=== PATIENT | female | born 1995 | race American Indian/Alaskan Native ===

== ENCOUNTER 2018-08-26 23:05 | Inpatient (IN) | payer OTHER ==
[2018-08-26] MEDS ORDERED: LACTATED RINGERS 1,000 ML IV ONE (23:21)
[2018-08-26 23:37] LABS: Bilirubin,Urine NEG (Negative); Blood,Urine NEG (Negative); Color,Urine Straw (Yellow); Protein,Urine <15 mg/dL mg/dL (Negative)
[2018-08-26] MEDS ORDERED: ROCEPHIN/NS 1 GM/50 ML 1 GM/50 ML BAG IV ONE (23:51)
[2018-08-26] MEDS ORDERED: BRETHINE SUB-Q ONE (23:51)
[2018-08-27] MEDS ORDERED: CELESTONE SOLUSPAN IM SCH (00:16)
[2018-08-27] MEDS ORDERED: MAGNESIUM SULFATE 4GM/100ML 4 GM/100 ML BAG IV ONE (00:19)
[2018-08-27] MEDS ORDERED: AMPICILLIN/NS 2 GM/100 ML 2 GM/100 ML BAG IV ONE (00:26)
[2018-08-27] MEDS ORDERED: BRETHINE SUB-Q PRN (00:26)
--- NOTE | 2018-08-27 00:44 | History and Physical Report ---
History of Present Illness Date of examination: 08/27/18 Date of admission: 08/27/18 00:17 Chief complaint: Contractions History of present illness: 23 year old at 32 weeks, 3 days gestation presents to labor and delivery complaining of contractions. Patient states she has been having contractions for the past 10-11 hours. Patient denies leaking of fluid, vaginal bleeding, or vaginal discharge. Patient reports active movement. Patient states she receives care at [facility] OB-GENERAL DUTY NURSE. No records are available. Will request records. [facility] 10/19/2018 per patient report. Ultrasound has been ordered to confirm gestational age and presentation. labs have been drawn. Vaginal and urine cultures have been ordered. Past History Past Medical History: other (obesity) Past Surgical History: no surgical history GENERAL DUTY NURSE History: trichomonas (had trichomonas earlier in , treated and cured per patient report). denies: abnormal PAP smear, chlamydia, gonorrhea, hepatitis B, hepatitis C, herpes, HIV, syphilis Family/Genetic History: diabetes Social history: single, lives with family, full code. denies: smoking, alcohol abuse, prescription drug abuse, IV drug use - Obstetrical History Expected Date of Delivery: 10/19/18 Actual Gestation: 32 Week(s) 3 Day(s) : 1 Para: 0 Hx # Term Pregnancies: 0 Number of Pregnancies: 1 Spontaneous Abortions: 0 Induced : 0 Number of Living Children: 0 Medications and Allergies Allergies Allergy/AdvReac Type Severity Reaction Status Date / Time No Known Allergies Allergy Unverified 08/19/18 18:18 Home Medications Medication Instructions Recorded Confirmed Last Taken Type No Known Home Medications [No 08/26/18 08/26/18 Unknown History Reported Home Medications] Active Meds: Active Medications Betamethasone Acet/Betameth SodPhos (Celestone Soluspan) 12 mg IM Q24H STEPHANIE Stop: 08/28/18 00:17 Magnesium Sulfate (Magnesium Sulfate 40gm/1000ml) 40 gm in 1,000 mls @ 50 mls/hr IV DIRECT STEPHANIE Ampicillin Sodium (Polycillin/Ns 2 Gm/100 Ml) 2 gm in 100 mls @ 100 mls/hr IV ONCE ONE; Protocol Stop: 08/27/18 01:25 Lactated Ringer's (Lactated Ringers) 1,000 mls @ 125 mls/hr IV DIRECT STEPHANIE Ampicillin Sodium (Ampicillin/Ns 1 Gm/50 Ml) 1 gm in 50 mls @ 100 mls/hr IV Q4HR STEPHANIE; Protocol Review of Systems All systems: negative (contractions) - Vital Signs Vital signs: Vital Signs Pulse BP 83 112/70 08/26/18 23:19 08/26/18 23:19 Temp Pulse Resp BP Pulse Ox 98.4 F 92 H 20 112/70 99 08/26/18 23:22 08/26/18 23:59 08/26/18 23:22 08/26/18 23:19 08/26/18 23:59 - Physical Exam Abdomen: Positive: normal appearance, soft. Negative: distention, tenderness, guarding, rigidity Genitourinary (Female): Positive: normal external genitalia, normal perenium. Negative: perineal/vulvar lesions Vagina: Positive: discharge (culture taken for GC/CT and GBS) Uterus: Positive: enlarged, other (size=dates). Negative: tender Anus/Rectum: Positive: normal perianal skin Extremities: Positive: normal. Negative: tenderness, edema - Obstetrical FHR: category 1 (AGA) Uterine Contraction Monitor Mode: External Cervical Dilatation: 3 Cervical Effacement Percentage: 100 (Breech, bulging membranes) station: -2 Uterine Contraction Pattern: Regular Uterine Contraction Intensity: Moderate Results Result Diagrams: 08/27/18 00:35 Abnormal lab results 08/26/18 Range/Units 23:20 Urine WBC (Auto) 14.0 H (0.0-6.0) /HPF All other labs normal. Assessment and Plan A: at 32 weeks, 3 days gestation. labor. GBS unknown. No records available. Breech presentation with bulging membranes (will get US to confirm). P: Admit. Continue IV hydration. Magnesium Sulfate per protocol. Celestone IM. GBS prophylaxis. US to confirm presentation, location of placenta, and gestational age. Labs and cultures. Consulted with Dr. Rea regarding this patient and all of the above patient complaints and interventions taken. Management of patient turned over to Dr. Rea due to gestation/ labor.
[2018-08-27] MEDS ORDERED: MORPHINE IM ONE (00:49)
[2018-08-27] MEDS ORDERED: ZOFRAN IM ONE (00:50)
[2018-08-27] MEDS ORDERED: MAGNESIUM SULFATE 40GM/1000ML 40 GM/1,000 ML BAG IV SCH (01:00)
[2018-08-27 01:06] LABS: Hematocrit 32.3 % (30.3-42.9); Hemoglobin 10.9 gm/dl (10.1-14.3); Mean Corpuscular HGB Conc 34 % (30-34); Mean Corpuscular Volume 90 fl (79-97); Platelet Count 288 K/mm3 (140-440); Red Cell Distribution Width 13.6 % (13.2-15.2)
[2018-08-27 01:43] LABS: Hepatitis C Virus Antibody Non-Reactive (NonReactive)
--- NOTE | 2018-08-27 01:44 | Ultrasound Report ---
FINAL REPORT PROCEDURE: US OB FOLLOW UP TECHNIQUE: Real-time limited sonographic examination was performed for evaluation of size, pos ition, heartbeat, fluid volume for each fetus with image documentation (1 or more fetuses). CPT 7681 5 HISTORY: Presentation, gestational age COMPARISON: No prior studies are available for comparison. FINDINGS: FETUS IUP: Single living intrauterine . Position: Breech. Placental position: Posterior, without previa . Amniotic fluid volume: 20.1 centimeters. Heart rate and rhythm: 157 BPM, Regular . anatomic survey: Not performed. MEASUREMENTS BPD: 6.7 centimeters corresponding to 35 weeks. HC: 31.3 centimeters correspond at 35 weeks and 1 day. AC: 27 centimeters correspond at 31 weeks and 1 day. FL: 6.5 centimeters correspond at 33 weeks and 4 days. Mean Gestational Age (composite criteria): 33 weeks and 5 days. Ratio biometry: Normal . Estimated Weight: 2005 grams. Interval growth: There are no prior studies for comparison. Estimated Due Date (earliest scan): 10/10/2018. IMPRESSION: 1. Single living intrauterine gestation at approximately 33 weeks and 5 days. 2. EDC by US 10/10/2018.
[2018-08-27 02:09] LABS: Amphetamine Screen,Urine PRESUMPTIVE NEGATIVE; Benzodiazepines Screen,Urine PRESUMPTIVE NEGATIVE; Cannabinoid Screen,Urine PRESUMPTIVE NEGATIVE; Cocaine Screen,Urine PRESUMPTIVE NEGATIVE; Methadone Screen,Urine PRESUMPTIVE NEGATIVE; Opiate Screen,Urine PRESUMPTIVE NEGATIVE
--- NOTE | 2018-08-27 02:47 | Event Note ---
Date: 08/27/18 SVE per MD request: . MD notified of SVE.
--- NOTE | 2018-08-27 07:30 | Event Note ---
Patient seen and examined. Cervix exam 2-/high station, membrane palpable. Foul smell. Need evaluation for ruptured membranes. Contractions began at 230pm. Patient did not arrive to hospital til 12am due to transportation. Discussed with nurse and will discuss with nursing team. Patient aware will need csection if breech persists. Irregular contractions. Continue NPO.
[2018-08-27] MEDS: AMPICILLIN/NS 1 GM/50 ML 1 GM/50 ML BAG IV SCH ×3 (08:00→16:39)
--- NOTE | 2018-08-27 09:27 | Progress Note ---
Assessment and Plan - Patient Problems (1) 32 weeks gestation of Current Visit: Yes Status: Acute (2) labor Current Visit: Yes Status: Acute Plan to address problem: Celestone dose# 1 given. Next dose tomorrow. Magnesium sulfate at 2gm/hr. Monitor Mg levels, DTRs, urine output. Continue ampicillin for GBS prophylaxis. Continue and toco monitoring. Awaiting APA consult. NICU consult. (3) Breech presentation Current Visit: Yes Status: Acute Plan to address problem: Patient is aware that if her labor progresses, she will have a C/section. Subjective - Subjective Date of service: 08/27/18 Principal diagnosis: SIUP at 32 weeks 3 days gestation in labor Interval history: Patient is a 23 year old , EDC 10/19/18 at 32 weeks and 3 days gestation who was admitted for labor early this morning. Her cervix was 2-3 cm/100%/- 3. Sonogram showed the baby to be breech, LISA 20. She was given magnesium sulfate for tocolysis, celestone for FLM, and ampicillin for GBS prophylaxis. She was found to have foul-smelling vaginal discharge. She was given rocephin IM. Genital cultures are pending. The patient says that her contractions are less frequent now. tracing is CAT1. Objective - Vital Signs Vital Signs: Vital Signs - 12hr 08/26/18 08/26/18 08/26/18 23:19 23:22 23:59 Temperature 98.4 F Pulse Rate 83 92 H Respiratory 20 Rate Blood Pressure 112/70 O2 Sat by Pulse 99 Oximetry 08/27/18 08/27/18 08/27/18 00:45 00:50 00:55 Temperature Pulse Rate 112 H 106 H 97 H Respiratory Rate Blood Pressure O2 Sat by Pulse 98 98 98 Oximetry 08/27/18 08/27/18 08/27/18 00:56 01:00 01:05 Temperature Pulse Rate 99 H 108 H 100 H Respiratory Rate Blood Pressure 119/72 O2 Sat by Pulse 98 97 Oximetry 08/27/18 08/27/18 08/27/18 01:10 01:15 01:20 Temperature Pulse Rate 121 H 108 H 102 H Respiratory Rate Blood Pressure O2 Sat by Pulse 98 96 97 Oximetry 08/27/18 08/27/18 08/27/18 01:25 01:30 01:35 Temperature Pulse Rate 98 H 104 H 111 H Respiratory Rate Blood Pressure O2 Sat by Pulse 97 99 98 Oximetry 08/27/18 08/27/18 08/27/18 01:40 01:45 01:46 Temperature Pulse Rate 98 H 101 H 96 H Respiratory Rate Blood Pressure O2 Sat by Pulse 97 98 94 Oximetry 08/27/18 08/27/18 08/27/18 01:50 01:55 02:00 Temperature Pulse Rate 94 H 91 H 90 Respiratory Rate Blood Pressure O2 Sat by Pulse 95 96 96 Oximetry 08/27/18 08/27/18 08/27/18 02:05 02:10 02:15 Temperature Pulse Rate 107 H 90 108 H Respiratory Rate Blood Pressure O2 Sat by Pulse 98 98 97 Oximetry 08/27/18 08/27/18 08/27/18 02:16 02:20 02:25 Temperature Pulse Rate 113 H 94 H 90 Respiratory Rate Blood Pressure O2 Sat by Pulse 92 98 97 Oximetry 08/27/18 08/27/18 08/27/18 02:30 02:35 02:36 Temperature Pulse Rate 89 86 88 Respiratory Rate Blood Pressure O2 Sat by Pulse 97 94 94 Oximetry 08/27/18 08/27/18 08/27/18 02:40 02:45 02:47 Temperature Pulse Rate 93 H 100 H 93 H Respiratory Rate Blood Pressure O2 Sat by Pulse 97 96 94 Oximetry 08/27/18 08/27/18 08/27/18 02:50 02:54 02:55 Temperature Pulse Rate 88 93 H 89 Respiratory Rate Blood Pressure O2 Sat by Pulse 95 94 95 Oximetry 08/27/18 08/27/18 08/27/18 03:00 03:05 03:10 Temperature Pulse Rate 95 H 89 90 Respiratory Rate Blood Pressure O2 Sat by Pulse 96 96 96 Oximetry 08/27/18 08/27/18 08/27/18 03:15 03:19 03:20 Temperature Pulse Rate 92 H 87 89 Respiratory Rate Blood Pressure O2 Sat by Pulse 96 94 96 Oximetry 08/27/18 08/27/18 08/27/18 03:25 03:30 03:32 Temperature Pulse Rate 90 90 94 H Respiratory Rate Blood Pressure O2 Sat by Pulse 97 95 94 Oximetry 08/27/18 08/27/18 08/27/18 03:35 03:39 03:40 Temperature Pulse Rate 92 H 94 H 91 H Respiratory Rate Blood Pressure O2 Sat by Pulse 95 94 95 Oximetry 08/27/18 08/27/18 08/27/18 03:45 03:50 03:55 Temperature Pulse Rate 92 H 91 H 111 H Respiratory Rate Blood Pressure O2 Sat by Pulse 96 96 98 Oximetry 08/27/18 08/27/18 08/27/18 04:00 04:05 04:10 Temperature Pulse Rate 90 88 95 H Respiratory Rate Blood Pressure O2 Sat by Pulse 97 96 97 Oximetry 08/27/18 08/27/18 08/27/18 04:15 04:20 04:25 Temperature Pulse Rate 94 H 98 H 91 H Respiratory Rate Blood Pressure O2 Sat by Pulse 96 95 96 Oximetry 08/27/18 08/27/18 08/27/18 04:30 04:35 04:40 Temperature Pulse Rate 96 H 97 H 100 H Respiratory Rate Blood Pressure O2 Sat by Pulse 95 98 99 Oximetry 08/27/18 08/27/18 08/27/18 04:45 04:50 04:55 Temperature Pulse Rate 96 H 96 H 106 H Respiratory Rate Blood Pressure O2 Sat by Pulse 97 97 98 Oximetry 08/27/18 08/27/18 08/27/18 05:00 05:05 05:10 Temperature Pulse Rate 95 H 96 H 120 H Respiratory Rate Blood Pressure O2 Sat by Pulse 97 97 96 Oximetry 08/27/18 08/27/18 08/27/18 05:15 05:20 05:25 Temperature Pulse Rate 100 H 98 H 96 H Respiratory Rate Blood Pressure O2 Sat by Pulse 97 96 98 Oximetry 08/27/18 08/27/18 08/27/18 05:30 05:35 05:40 Temperature Pulse Rate 94 H 96 H 98 H Respiratory Rate Blood Pressure O2 Sat by Pulse 98 97 97 Oximetry 08/27/18 08/27/18 08/27/18 05:45 05:50 05:55 Temperature Pulse Rate 102 H 102 H 107 H Respiratory Rate Blood Pressure O2 Sat by Pulse 96 97 98 Oximetry 08/27/18 08/27/18 08/27/18 06:00 06:05 06:10 Temperature Pulse Rate 118 H 107 H 100 H Respiratory Rate Blood Pressure O2 Sat by Pulse 96 99 97 Oximetry 08/27/18 08/27/18 08/27/18 06:15 06:20 06:25 Temperature Pulse Rate 104 H 100 H 102 H Respiratory Rate Blood Pressure O2 Sat by Pulse 99 97 97 Oximetry 08/27/18 08/27/18 08/27/18 06:30 06:35 06:40 Temperature Pulse Rate 101 H 111 H 98 H Respiratory Rate Blood Pressure O2 Sat by Pulse 98 97 96 Oximetry 08/27/18 08/27/18 08/27/18 06:45 06:50 06:55 Temperature Pulse Rate 107 H 105 H 97 H Respiratory Rate Blood Pressure O2 Sat by Pulse 95 99 97 Oximetry 08/27/18 08/27/18 08/27/18 07:00 07:05 07:10 Temperature Pulse Rate 97 H 104 H 99 H Respiratory Rate Blood Pressure O2 Sat by Pulse 97 97 97 Oximetry 08/27/18 08/27/18 08/27/18 07:12 07:15 07:20 Temperature Pulse Rate 132 H 103 H 103 H Respiratory Rate Blood Pressure O2 Sat by Pulse 82 L 97 97 Oximetry 08/27/18 08/27/18 08/27/18 07:25 07:30 07:33 Temperature Pulse Rate 103 H 99 H 104 H Respiratory Rate Blood Pressure O2 Sat by Pulse 98 96 94 Oximetry 08/27/18 08/27/18 08/27/18 07:34 07:35 07:40 Temperature Pulse Rate 100 H 95 H 98 H Respiratory Rate Blood Pressure 117/69 O2 Sat by Pulse 97 95 Oximetry 08/27/18 08/27/18 08/27/18 07:45 07:50 07:55 Temperature 97.9 F Pulse Rate 106 H 95 H 92 H Respiratory 16 Rate Blood Pressure O2 Sat by Pulse 98 97 97 Oximetry 08/27/18 08/27/18 08/27/18 08:00 08:05 08:08 Temperature Pulse Rate 104 H 94 H 105 H Respiratory Rate Blood Pressure O2 Sat by Pulse 96 96 92 Oximetry 08/27/18 08/27/18 08/27/18 08:10 08:15 08:20 Temperature Pulse Rate 93 H 104 H 98 H Respiratory Rate Blood Pressure O2 Sat by Pulse 97 97 97 Oximetry 08/27/18 08/27/18 08/27/18 08:25 08:30 08:35 Temperature Pulse Rate 98 H 107 H 97 H Respiratory Rate Blood Pressure O2 Sat by Pulse 96 97 94 Oximetry 08/27/18 08/27/18 08/27/18 08:40 08:45 08:50 Temperature Pulse Rate 104 H 97 H 105 H Respiratory Rate Blood Pressure O2 Sat by Pulse 97 98 98 Oximetry 08/27/18 08/27/18 08/27/18 08:55 09:00 09:05 Temperature Pulse Rate 104 H 101 H 102 H Respiratory Rate Blood Pressure O2 Sat by Pulse 97 98 99 Oximetry 08/27/18 09:14 Temperature Pulse Rate 98 H Respiratory Rate Blood Pressure O2 Sat by Pulse 100 Oximetry - Exam Cardiovascular: Normal S1, Normal S2 Lungs: Clear to auscultation Vulva: both: normal FHR: category 1 Uterine Contraction Monitor Mode: External Cervical Dilatation: 2 Cervical Effacement Percentage: 100 station: -3 Uterine Contraction Pattern: Irregular Uterine Contraction Intensity: Moderate Deep Tendon Reflex Grade: Normal +2 - Labs Labs: Abnormal Labs 08/26/18 08/27/18 08/27/18 23:20 00:35 06:46 WBC 15.5 H RBC 3.60 L Hemoglobin A1c Magnesium 4.90 H Urine WBC (Auto) 14.0 H 08/27/18 Unknown WBC RBC Hemoglobin A1c 6.2 H Magnesium Urine WBC (Auto) Laboratory Results - last 24 hr 08/26/18 08/27/18 08/27/18 23:20 00:00 00:00 WBC RBC Hgb Hct MCV MCH MCHC RDW Plt Count Hemoglobin A1c Magnesium Urine Color Straw Urine Turbidity Clear Urine pH 7.0 Ur Specific [place] 1.003 Urine Protein <15 mg/dl Urine Glucose (UA) Neg Urine Ketones Neg Urine Blood Neg Urine Nitrite Neg Urine Bilirubin Neg Urine Urobilinogen 2.0 Ur Leukocyte Esterase Lg Urine WBC (Auto) 14.0 H Urine RBC (Auto) 6.0 U Epithel Cells (Auto) 1.0 Urine Opiates Screen Urine Methadone Screen Ur Barbiturates Screen Ur Phencyclidine Scrn Ur Amphetamines Screen U Benzodiazepines Scrn Urine Cocaine Screen U Marijuana (THC) Screen Drugs of Abuse Note Hep Bs Antigen Non-reactive Hepatitis C Antibody Non-reactive HIV 1&2 Antibody Rapid HIV P24 Antigen Rubella IgG Antibody Immune Fibronectin Blood Type Antibody Screen 08/27/18 08/27/18 08/27/18 00:07 00:35 00:35 WBC 15.5 H RBC 3.60 L Hgb 10.9 Hct 32.3 MCV 90 MCH 30 MCHC 34 RDW 13.6 Plt Count 288 Hemoglobin A1c Magnesium Urine Color Urine Turbidity Urine pH Ur Specific [place] Urine Protein Urine Glucose (UA) Urine Ketones Urine Blood Urine Nitrite Urine Bilirubin Urine Urobilinogen Ur Leukocyte Esterase Urine WBC (Auto) Urine RBC (Auto) U Epithel Cells (Auto) Urine Opiates Screen Presumptive negative Urine Methadone Screen Presumptive negative Ur Barbiturates Screen Presumptive negative Ur Phencyclidine Scrn Presumptive negative Ur Amphetamines Screen Presumptive negative U Benzodiazepines Scrn Presumptive negative Urine Cocaine Screen Presumptive negative U Marijuana (THC) Screen Presumptive negative Drugs of Abuse Note Disclamer Hep Bs Antigen Hepatitis C Antibody HIV 1&2 Antibody Rapid HIV P24 Antigen Rubella IgG Antibody Fibronectin Positive Blood Type Antibody Screen 08/27/18 08/27/18 08/27/18 01:15 06:46 Unknown WBC RBC Hgb Hct MCV MCH MCHC RDW Plt Count Hemoglobin A1c Magnesium 4.90 H Urine Color Urine Turbidity Urine pH Ur Specific [place] Urine Protein Urine Glucose (UA) Urine Ketones Urine Blood Urine Nitrite Urine Bilirubin Urine Urobilinogen Ur Leukocyte Esterase Urine WBC (Auto) Urine RBC (Auto) U Epithel Cells (Auto) Urine Opiates Screen Urine Methadone Screen Ur Barbiturates Screen Ur Phencyclidine Scrn Ur Amphetamines Screen U Benzodiazepines Scrn Urine Cocaine Screen U Marijuana (THC) Screen Drugs of Abuse Note Hep Bs Antigen Hepatitis C Antibody HIV 1&2 Antibody Rapid Non react HIV P24 Antigen Non react Rubella IgG Antibody Fibronectin Blood Type A POSITIVE Antibody Screen Negative 08/27/18 Unknown WBC RBC Hgb Hct MCV MCH MCHC RDW Plt Count Hemoglobin A1c 6.2 H Magnesium Urine Color Urine Turbidity Urine pH Ur Specific [place] Urine Protein Urine Glucose (UA) Urine Ketones Urine Blood Urine Nitrite Urine Bilirubin Urine Urobilinogen Ur Leukocyte Esterase Urine WBC (Auto) Urine RBC (Auto) U Epithel Cells (Auto) Urine Opiates Screen Urine Methadone Screen Ur Barbiturates Screen Ur Phencyclidine Scrn Ur Amphetamines Screen U Benzodiazepines Scrn Urine Cocaine Screen U Marijuana (THC) Screen Drugs of Abuse Note Hep Bs Antigen Hepatitis C Antibody HIV 1&2 Antibody Rapid HIV P24 Antigen Rubella IgG Antibody Fibronectin Blood Type Antibody Screen - Results US- obstetric: report reviewed
[2018-08-27] MEDS: PROCARDIA*For Tocolysis only PO SCH ×2 (09:32→15:24)
--- NOTE | 2018-08-27 11:21 | Consultation ---
History of Present Illness Reason for consult: contractions (23 year old at 32 weeks, 3 days gestation presented to labor and delivery complaining of contractions. Patient stated she has been having contractions for the past 10-11 hours. Patient denies leaking of fluid, vaginal bleeding. Reports vaginal discharge. Patient reports active movement. Reports ctx have decreased in intensity and in frequency . Positive FFN During consultation patient under MgSO4 IV ABX and BMZ in progress. Under no tocolytics . No records available for review . Awaiting culture results ) Past History Past Medical History: other (obesity) Past Surgical History: no surgical history [employer]ESSIONAL History: trichomonas (had trichomonas earlier in , treated and cured per patient report). denies: abnormal PAP smear, chlamydia, gonorrhea, hepatitis B, hepatitis C, herpes, HIV, syphilis Family/Genetic History: diabetes - Obstetrical History : 1 Medications and Allergies Allergies Allergy/AdvReac Type Severity Reaction Status Date / Time No Known Allergies Allergy Unverified 08/19/18 18:18 Home Medications Medication Instructions Recorded Confirmed Last Taken Type No Known Home Medications [No 08/26/18 08/26/18 Unknown History Reported Home Medications] Active Meds: Active Medications Betamethasone Acet/Betameth SodPhos (Celestone Soluspan) 12 mg IM Q24H STEPHANIE Stop: 08/28/18 00:17 Last Admin: 08/27/18 00:57 Dose: 12 mg Documented by: Lactated Ringer's (Lactated Ringers) 1,000 mls @ 125 mls/hr IV DIRECT STEPHANIE Ampicillin Sodium (Ampicillin/Ns 1 Gm/50 Ml) 1 gm in 50 mls @ 100 mls/hr IV Q4HR STEPHANIE; Protocol Last Admin: 08/27/18 08:00 Dose: 100 mls/hr Documented by: Nifedipine (Procardia*For Tocolysis Only*) 10 mg PO Q6HRT [facility] Last Admin: 08/27/18 09:32 Dose: 10 mg Documented by: Review of Systems Constitutional: no fever, no chills Eyes: no blurred vision Ears, nose, mouth and throat: no headache Cardiovascular: no rapid/irregular heart beat, no shortness of breath Respiratory: no shortness of breath, no dyspnea on exertion Breasts: deferred Gastrointestinal: no abdominal pain, no nausea, no vomiting Genitourinary: vaginal discharge (cultures were performed awaiting results ), contractions (decrease in strength and occurance ), no vaginal bleeding, no leakage of fluid, no pelvic pain Rectal Exam: deferred Musculoskeletal: no low back pain Integumentary: no rash Neurological: no seizures Endocrine: recent glucocorticoid use (BMZ for FLM in progress), other (reports 1 GTT screen was performed last week however unaware of result ) Allergic/Immunologic: no wheezing - Vital Signs Vital signs: Vital Signs Pulse BP 83 112/70 08/26/18 23:19 08/26/18 23:19 Temp Pulse Resp BP Pulse Ox 97.9 F 98 H 16 117/69 97 08/27/18 07:50 08/27/18 11:14 08/27/18 07:50 08/27/18 07:34 08/27/18 11:14 - Physical Exam Breasts: Positive: deferred Cardiovascular: Regular rate Lungs: Positive: Normal air movement Abdomen: Positive: other (gravid ). Negative: tenderness, guarding Cervix: Positive: other (RN reports SVE by OB - 3/100/Bulging bag) Uterus: Negative: tender Deep Tendon Reflex Grade: Normal +2 - Obstetrical FHR: category 1 Uterine Contraction Monitor Mode: External Uterine Contraction Pattern: Regular (Q5-6 min) Uterine Contraction Intensity: Mild Results Result Diagrams: 08/27/18 00:35 Abnormal lab results 08/26/18 08/27/18 08/27/18 Range/Units 23:20 00:35 06:46 WBC 15.5 H (4.5-11.0) K/mm3 RBC 3.60 L (3.65-5.03) M/mm3 Hemoglobin A1c (4-6) % Magnesium 4.90 H (1.7-2.3) mg/dL Urine WBC (Auto) 14.0 H (0.0-6.0) /HPF 08/27/18 Range/Units Unknown WBC (4.5-11.0) K/mm3 RBC (3.65-5.03) M/mm3 Hemoglobin A1c 6.2 H (4-6) % Magnesium (1.7-2.3) mg/dL Urine WBC (Auto) (0.0-6.0) /HPF All other labs normal. Ultrasound: report reviewed (See chart for full report 08/27/18 IUP EGA (AUA) 33.5 weeks EFW 2005 grams ( 46 % ) BREECH, LISA of 20.1 cm FHT 157 bpm posterior placental with no previa ) Assessment and Plan A: at 32 weeks, 3 days gestation. labor. Advanced cervical dilation and effacement LISA of 20 cm HgbA1C of 6.2 % 1 GTT result unaware Reassuring EFW @ 46 % Maternal obesity GBS unknown. No records available. Breech presentation Positive FFN Elevated WBC NO sxs of chorio BMZ in progress IV ABX in progress P: Remain in patient Continue IV hydration. D/C Magnesium Sulfate for neuro protection please refer to committee opinion Procardia 10 mg PO Q6hrs Complete Celestone IM. GBS prophylaxis. US to confirm presentation when in active labor During active labor If continued BREECH proceed with C/S Document her GTT screen Awaiting Labs and cultures.
[2018-08-27] MEDS ORDERED: PEPCID IV ONE (18:08)
[2018-08-27] MEDS ORDERED: BICITRA PO ONE (18:08)
[2018-08-27] MEDS ORDERED: REGLAN IV ONE (18:08)
--- NOTE | 2018-08-27 18:32 | Anesthesia Day of Surgery ---
Anesthesia Day of Surgery - Day of Surgery Patient Examined: Yes Patient H&P Reviewed: Yes Patient is NPO: No Beta Blockers: No Cardiac Clearance: No Pulmonary Clearance: No Boone's Test: N/A
[2018-08-27] MEDS ORDERED: NUBAIN IV PRN (18:33)
[2018-08-27] MEDS ORDERED: PHENERGAN PR PRN (18:33)
[2018-08-27] MEDS ORDERED: PHENERGAN PO PRN (18:33)
[2018-08-27] MEDS ORDERED: BENADRYL IV PRN (18:33)
[2018-08-27] MEDS ORDERED: ZOFRAN IV PRN ×2 (18:33→21:09)
[2018-08-27] MEDS ORDERED: NARCAN 0.4 MG/1 ML IV PRN ×2 (18:33→21:09)
--- NOTE | 2018-08-27 18:33 | Anesthesia Consultation ---
Anesthesia Consult and Med Hx - Airway Anesthetic Teeth Evaluation: Good ROM Head & Neck: Adequate Mental/Hyoid Distance: Adequate Mallampati Class: Class I Intubation Access Assessment: Good - Pulmonary Exam CTA: Yes - Cardiac Exam Cardiac Exam: RRR - Pre-Operative Health Status ASA Pre-Surgery Classification: ASA2 Proposed Anesthetic Plan: Spinal - Pulmonary Hx Asthma: No COPD: No Hx Pneumonia: No - Cardiovascular System Hx Hypertension: No - Central Nervous System Hx Seizures: No Hx Psychiatric Problems: Yes (anxiety (no meds)) - Endocrine Hx Renal Disease: No Hx End Stage Renal Disease: No Hx Hypothyroidism: No Hx Hyperthyroidism: No - Hematic Hx Anemia: No Hx Sickle Cell Disease: No - Other Systems Hx Alcohol Use: No
[2018-08-27] MEDS ORDERED: SODIUM CHLORIDE FLUSH SYRINGE 10 ML IV NR ×2 (19:00→22:00)
[2018-08-27] MEDS ORDERED: ANCEF/STERILE WATER 2 GM/20 ML 2 GM/20 ML SYRINGE IV NR (19:00)
[2018-08-27] MEDS ORDERED: LACTATED RINGERS 1,000 ML IV SCH (19:00)
[2018-08-27] MEDS ORDERED: PITOCin/NS 20 UNIT/1000ML DRIP 20 UNITS/1,000 ML BAG IV SCH ×2 (19:00→22:00)
--- NOTE | 2018-08-27 19:02 | Progress Note ---
Assessment and Plan - Patient Problems (1) 32 weeks gestation of Current Visit: Yes Status: Acute (2) labor Current Visit: Yes Status: Acute Plan to address problem: Patient has made cervical changes and bulging membranes. Risks of cord prolapse were discussed with her if she ruptures. At this point, the above risks outweigh the benefits of continued management. I counselled her for C/section due to malpresentation (breech). NICU aware. Anesthesia aware. Continue monitoring. Keep NPO. (3) Breech presentation Current Visit: Yes Status: Acute Plan to address problem: Patient is for primary C/section. Subjective - Subjective Date of service: 08/27/18 Principal diagnosis: SIUP at 32 weeks 3 days gestation in labor Interval history: Patient is a 23 year old , EDC 10/19/18 at 32 weeks and 3 days gestation who was admitted for labor early this morning. Her cervix was 2-3 cm/100%/- 3. Sonogram showed the baby to be breech, LISA 20. She was given magnesium sulfate for tocolysis, celestone for FLM, and ampicillin for GBS prophylaxis. She was found to have foul-smelling vaginal discharge. She was given rocephin I M. FFN positive. Genital cultures are pending. tracing is CAT1. [facility] consult was done. They discontinued the magnesium and started her on procardia for tocolysis. She has not felt any contractions pain but she made cervical changes to 4 cm/100%/-1, bulging membranes. bedside sonogram confirmed breech presentation. Objective - Vital Signs Vital Signs: Vital Signs - 12hr 08/27/18 08/27/18 08/27/18 06:55 07:00 07:05 Temperature Pulse Rate 97 H 97 H 104 H Respiratory Rate Blood Pressure O2 Sat by Pulse 97 97 97 Oximetry 08/27/18 08/27/18 08/27/18 07:10 07:12 07:15 Temperature Pulse Rate 99 H 132 H 103 H Respiratory Rate Blood Pressure O2 Sat by Pulse 97 82 L 97 Oximetry 08/27/18 08/27/18 08/27/18 07:20 07:25 07:30 Temperature Pulse Rate 103 H 103 H 99 H Respiratory Rate Blood Pressure O2 Sat by Pulse 97 98 96 Oximetry 08/27/18 08/27/18 08/27/18 07:33 07:34 07:35 Temperature Pulse Rate 104 H 100 H 95 H Respiratory Rate Blood Pressure 117/69 O2 Sat by Pulse 94 97 Oximetry 08/27/18 08/27/18 08/27/18 07:40 07:45 07:50 Temperature 97.9 F Pulse Rate 98 H 106 H 95 H Respiratory 16 Rate Blood Pressure O2 Sat by Pulse 95 98 97 Oximetry 08/27/18 08/27/18 08/27/18 07:55 08:00 08:05 Temperature Pulse Rate 92 H 104 H 94 H Respiratory Rate Blood Pressure O2 Sat by Pulse 97 96 96 Oximetry 08/27/18 08/27/18 08/27/18 08:08 08:10 08:15 Temperature Pulse Rate 105 H 93 H 104 H Respiratory Rate Blood Pressure O2 Sat by Pulse 92 97 97 Oximetry 08/27/18 08/27/18 08/27/18 08:20 08:25 08:30 Temperature Pulse Rate 98 H 98 H 107 H Respiratory Rate Blood Pressure O2 Sat by Pulse 97 96 97 Oximetry 08/27/18 08/27/18 08/27/18 08:35 08:40 08:45 Temperature Pulse Rate 97 H 104 H 97 H Respiratory Rate Blood Pressure O2 Sat by Pulse 94 97 98 Oximetry 08/27/18 08/27/18 08/27/18 08:50 08:55 09:00 Temperature Pulse Rate 105 H 104 H 101 H Respiratory Rate Blood Pressure O2 Sat by Pulse 98 97 98 Oximetry 08/27/18 08/27/18 08/27/18 09:05 09:14 09:19 Temperature Pulse Rate 102 H 98 H 97 H Respiratory Rate Blood Pressure O2 Sat by Pulse 99 100 98 Oximetry 08/27/18 08/27/18 08/27/18 09:24 09:29 09:34 Temperature Pulse Rate 95 H 90 102 H Respiratory Rate Blood Pressure O2 Sat by Pulse 98 97 98 Oximetry 08/27/18 08/27/18 08/27/18 09:38 09:39 09:44 Temperature Pulse Rate 98 H 96 H 95 H Respiratory Rate Blood Pressure O2 Sat by Pulse 94 95 97 Oximetry 08/27/18 08/27/18 08/27/18 09:49 09:54 09:59 Temperature Pulse Rate 99 H 103 H 104 H Respiratory Rate Blood Pressure O2 Sat by Pulse 97 97 96 Oximetry 08/27/18 08/27/18 08/27/18 10:04 10:09 10:14 Temperature Pulse Rate 105 H 100 H 101 H Respiratory Rate Blood Pressure O2 Sat by Pulse 95 96 97 Oximetry 08/27/18 08/27/18 08/27/18 10:19 10:24 10:29 Temperature Pulse Rate 104 H 103 H 105 H Respiratory Rate Blood Pressure O2 Sat by Pulse 96 97 97 Oximetry 08/27/18 08/27/18 08/27/18 10:34 10:39 10:44 Temperature Pulse Rate 103 H 110 H 104 H Respiratory Rate Blood Pressure O2 Sat by Pulse 96 96 96 Oximetry 08/27/18 08/27/18 08/27/18 10:49 10:54 10:59 Temperature Pulse Rate 114 H 104 H 107 H Respiratory Rate Blood Pressure O2 Sat by Pulse 96 99 98 Oximetry 08/27/18 08/27/18 08/27/18 11:04 11:09 11:14 Temperature Pulse Rate 107 H 104 H 98 H Respiratory Rate Blood Pressure O2 Sat by Pulse 98 97 97 Oximetry 08/27/18 08/27/18 08/27/18 11:19 11:24 11:26 Temperature Pulse Rate 102 H 105 H 116 H Respiratory Rate Blood Pressure 131/79 O2 Sat by Pulse 97 98 Oximetry 08/27/18 08/27/18 08/27/18 11:29 11:34 11:39 Temperature Pulse Rate 106 H 99 H 98 H Respiratory Rate Blood Pressure O2 Sat by Pulse 97 96 95 Oximetry 08/27/18 08/27/18 08/27/18 11:44 11:49 11:54 Temperature Pulse Rate 98 H 96 H 103 H Respiratory Rate Blood Pressure O2 Sat by Pulse 95 97 98 Oximetry 08/27/18 08/27/18 08/27/18 11:57 11:59 12:04 Temperature 97.9 F Pulse Rate 94 H 97 H Respiratory 16 Rate Blood Pressure O2 Sat by Pulse 97 96 Oximetry 08/27/18 08/27/18 08/27/18 12:09 12:11 12:14 Temperature Pulse Rate 96 H 93 H 94 H Respiratory Rate Blood Pressure O2 Sat by Pulse 96 94 95 Oximetry 08/27/18 08/27/18 08/27/18 12:19 12:24 12:26 Temperature Pulse Rate 92 H 95 H 93 H Respiratory Rate Blood Pressure O2 Sat by Pulse 96 96 94 Oximetry 08/27/18 08/27/18 08/27/18 12:29 12:33 12:34 Temperature Pulse Rate 102 H 100 H 98 H Respiratory Rate Blood Pressure 119/68 O2 Sat by Pulse 95 94 95 Oximetry 08/27/18 08/27/18 08/27/18 12:39 12:44 12:49 Temperature Pulse Rate 103 H 98 H 91 H Respiratory Rate Blood Pressure O2 Sat by Pulse 98 96 97 Oximetry 08/27/18 08/27/18 08/27/18 12:54 12:59 13:00 Temperature 98.1 F Pulse Rate 92 H 93 H Respiratory 16 Rate Blood Pressure O2 Sat by Pulse 96 96 Oximetry 08/27/18 08/27/18 08/27/18 13:04 13:09 13:14 Temperature Pulse Rate 91 H 90 89 Respiratory Rate Blood Pressure O2 Sat by Pulse 97 98 97 Oximetry 08/27/18 08/27/18 08/27/18 13:19 13:24 13:29 Temperature Pulse Rate 90 92 H 103 H Respiratory Rate Blood Pressure O2 Sat by Pulse 98 98 98 Oximetry 08/27/18 08/27/18 08/27/18 13:33 13:34 13:39 Temperature Pulse Rate 99 H 94 H 91 H Respiratory Rate Blood Pressure O2 Sat by Pulse 73 L 97 98 Oximetry 08/27/18 08/27/18 08/27/18 13:44 14:37 14:42 Temperature Pulse Rate 93 H 91 H 86 Respiratory Rate Blood Pressure O2 Sat by Pulse 97 97 96 Oximetry 08/27/18 08/27/18 08/27/18 14:47 14:53 14:56 Temperature Pulse Rate 90 90 Respiratory Rate Blood Pressure 96/59 O2 Sat by Pulse 98 100 Oximetry 08/27/18 08/27/18 08/27/18 14:57 15:01 15:41 Temperature Pulse Rate 97 H 38 L 101 H Respiratory Rate Blood Pressure O2 Sat by Pulse 90 0 L 95 Oximetry 08/27/18 08/27/18 08/27/18 15:42 15:47 15:52 Temperature Pulse Rate 97 H 101 H 105 H Respiratory Rate Blood Pressure O2 Sat by Pulse 94 97 99 Oximetry 08/27/18 08/27/18 08/27/18 15:54 15:57 16:02 Temperature Pulse Rate 112 H 97 H 95 H Respiratory Rate Blood Pressure O2 Sat by Pulse 91 96 95 Oximetry 08/27/18 08/27/18 08/27/18 16:03 16:07 16:08 Temperature Pulse Rate 94 H 93 H 95 H Respiratory Rate Blood Pressure O2 Sat by Pulse 94 95 94 Oximetry 08/27/18 08/27/18 08/27/18 16:12 16:17 16:22 Temperature Pulse Rate 99 H 92 H 89 Respiratory Rate Blood Pressure O2 Sat by Pulse 96 94 95 Oximetry 08/27/18 08/27/18 08/27/18 16:26 16:27 16:32 Temperature Pulse Rate 87 91 H 91 H Respiratory Rate Blood Pressure O2 Sat by Pulse 94 95 95 Oximetry 08/27/18 08/27/18 08/27/18 16:33 16:37 16:40 Temperature 97.0 F L Pulse Rate 113 H 104 H Respiratory 18 Rate Blood Pressure O2 Sat by Pulse 94 98 Oximetry 08/27/18 08/27/18 08/27/18 16:41 16:42 16:47 Temperature Pulse Rate 102 H 104 H 101 H Respiratory Rate Blood Pressure 114/70 O2 Sat by Pulse 98 98 Oximetry 08/27/18 08/27/18 08/27/18 16:52 16:57 17:02 Temperature Pulse Rate 108 H 95 H 89 Respiratory Rate Blood Pressure O2 Sat by Pulse 96 95 98 Oximetry 08/27/18 08/27/18 08/27/18 17:07 17:12 17:17 Temperature Pulse Rate 93 H 81 86 Respiratory Rate Blood Pressure O2 Sat by Pulse 97 98 97 Oximetry 08/27/18 08/27/18 08/27/18 17:22 17:27 17:32 Temperature Pulse Rate 79 80 76 Respiratory Rate Blood Pressure O2 Sat by Pulse 96 97 97 Oximetry 08/27/18 08/27/18 08/27/18 17:37 17:41 17:42 Temperature Pulse Rate 81 93 H 79 Respiratory Rate Blood Pressure 109/65 O2 Sat by Pulse 97 97 Oximetry 08/27/18 08/27/18 08/27/18 17:47 17:52 17:57 Temperature Pulse Rate 90 98 H 99 H Respiratory Rate Blood Pressure O2 Sat by Pulse 98 98 99 Oximetry 08/27/18 08/27/18 08/27/18 18:02 18:07 18:12 Temperature Pulse Rate 103 H 108 H 111 H Respiratory Rate Blood Pressure O2 Sat by Pulse 99 97 99 Oximetry 08/27/18 08/27/18 08/27/18 18:17 18:22 18:27 Temperature Pulse Rate 102 H 110 H 104 H Respiratory Rate Blood Pressure O2 Sat by Pulse 100 99 100 Oximetry 08/27/18 08/27/18 08/27/18 18:32 18:37 18:41 Temperature Pulse Rate 97 H 102 H 102 H Respiratory Rate Blood Pressure 117/58 O2 Sat by Pulse 100 100 Oximetry 08/27/18 08/27/18 08/27/18 18:42 18:47 18:52 Temperature Pulse Rate 101 H 113 H 110 H Respiratory Rate Blood Pressure O2 Sat by Pulse 100 100 100 Oximetry - Exam Cardiovascular: Normal S1, Normal S2 Lungs: Clear to auscultation Vulva: both: normal FHR: category 1 Uterine Contraction Monitor Mode: External Cervical Dilatation: 4 Cervical Effacement Percentage: 100 station: -1 Uterine Contraction Pattern: Irregular Uterine Contraction Intensity: Mild Deep Tendon Reflex Grade: Normal +2 - Labs Labs: Abnormal Labs 08/26/18 08/27/18 08/27/18 23:20 00:35 06:46 WBC 15.5 H RBC 3.60 L Hemoglobin A1c Magnesium 4.90 H Urine WBC (Auto) 14.0 H 08/27/18 Unknown WBC RBC Hemoglobin A1c 6.2 H Magnesium Urine WBC (Auto) Laboratory Results - last 24 hr 08/26/18 08/27/18 08/27/18 23:20 00:00 00:00 WBC RBC Hgb Hct MCV MCH MCHC RDW Plt Count Hemoglobin A1c Magnesium Urine Color Straw Urine Turbidity Clear Urine pH 7.0 Ur Specific [place] 1.003 Urine Protein <15 mg/dl Urine Glucose (UA) Neg Urine Ketones Neg Urine Blood Neg Urine Nitrite Neg Urine Bilirubin Neg Urine Urobilinogen 2.0 Ur Leukocyte Esterase Lg Urine WBC (Auto) 14.0 H Urine RBC (Auto) 6.0 U Epithel Cells (Auto) 1.0 Urine Opiates Screen Urine Methadone Screen Ur Barbiturates Screen Ur Phencyclidine Scrn Ur Amphetamines Screen U Benzodiazepines Scrn Urine Cocaine Screen U Marijuana (THC) Screen Drugs of Abuse Note RPR Hep Bs Antigen Non-reactive Hepatitis C Antibody Non-reactive HIV 1&2 Antibody Rapid HIV P24 Antigen Rubella IgG Antibody Immune Fibronectin Blood Type Antibody Screen 08/27/18 08/27/18 08/27/18 00:07 00:35 00:35 WBC 15.5 H RBC 3.60 L Hgb 10.9 Hct 32.3 MCV 90 MCH 30 MCHC 34 RDW 13.6 Plt Count 288 Hemoglobin A1c Magnesium Urine Color Urine Turbidity Urine pH Ur Specific [place] Urine Protein Urine Glucose (UA) Urine Ketones Urine Blood Urine Nitrite Urine Bilirubin Urine Urobilinogen Ur Leukocyte Esterase Urine WBC (Auto) Urine RBC (Auto) U Epithel Cells (Auto) Urine Opiates Screen Urine Methadone Screen Ur Barbiturates Screen Ur Phencyclidine Scrn Ur Amphetamines Screen U Benzodiazepines Scrn Urine Cocaine Screen U Marijuana (THC) Screen Drugs of Abuse Note RPR Nonreactive Hep Bs Antigen Hepatitis C Antibody HIV 1&2 Antibody Rapid HIV P24 Antigen Rubella IgG Antibody Fibronectin Positive Blood Type Antibody Screen 08/27/18 08/27/18 08/27/18 00:35 01:15 06:46 WBC RBC Hgb Hct MCV MCH MCHC RDW Plt Count Hemoglobin A1c Magnesium 4.90 H Urine Color Urine Turbidity Urine pH Ur Specific [place] Urine Protein Urine Glucose (UA) Urine Ketones Urine Blood Urine Nitrite Urine Bilirubin Urine Urobilinogen Ur Leukocyte Esterase Urine WBC (Auto) Urine RBC (Auto) U Epithel Cells (Auto) Urine Opiates Screen Presumptive negative Urine Methadone Screen Presumptive negative Ur Barbiturates Screen Presumptive negative Ur Phencyclidine Scrn Presumptive negative Ur Amphetamines Screen Presumptive negative U Benzodiazepines Scrn Presumptive negative Urine Cocaine Screen Presumptive negative U Marijuana (THC) Screen Presumptive negative Drugs of Abuse Note Disclamer RPR Hep Bs Antigen Hepatitis C Antibody HIV 1&2 Antibody Rapid Non react HIV P24 Antigen Non react Rubella IgG Antibody Fibronectin Blood Type Antibody Screen 08/27/18 08/27/18 Unknown Unknown WBC RBC Hgb Hct MCV MCH MCHC RDW Plt Count Hemoglobin A1c 6.2 H Magnesium Urine Color Urine Turbidity Urine pH Ur Specific [place] Urine Protein Urine Glucose (UA) Urine Ketones Urine Blood Urine Nitrite Urine Bilirubin Urine Urobilinogen Ur Leukocyte Esterase Urine WBC (Auto) Urine RBC (Auto) U Epithel Cells (Auto) Urine Opiates Screen Urine Methadone Screen Ur Barbiturates Screen Ur Phencyclidine Scrn Ur Amphetamines Screen U Benzodiazepines Scrn Urine Cocaine Screen U Marijuana (THC) Screen Drugs of Abuse Note RPR Hep Bs Antigen Hepatitis C Antibody HIV 1&2 Antibody Rapid HIV P24 Antigen Rubella IgG Antibody Fibronectin Blood Type A POSITIVE Antibody Screen Negative - Results US- obstetric: report reviewed
[2018-08-27] MEDS ORDERED: NEO SYNEPHRINE ONE (19:19)
[2018-08-27] MEDS ORDERED: ZOFRAN ONE (19:19)
[2018-08-27] MEDS ORDERED: ASTRAMORPH PF 10MG/10ML ONE (19:19)
[2018-08-27] MEDS ORDERED: NACL 0.9% IR ONE (19:52)
[2018-08-27] MEDS ORDERED: WATER FOR IRRIG STERILE IR ONE (19:52)
[2018-08-27] MEDS ORDERED: LACTATED RINGERS 1,000 ML ONE (19:56)
[2018-08-27] MEDS ORDERED: SUBLIMAZE ONE ×2 (20:17→20:32)
[2018-08-27] MEDS ORDERED: VERSED ONE (20:24)
[2018-08-27] MEDS ORDERED: METHERGINE IM ONE (20:25)
[2018-08-27] MEDS ORDERED: DIPRIVAN 10 MG/ML IV ONE (20:35)
[2018-08-27] MEDS ORDERED: TUCKS PAD TP PRN (21:09)
[2018-08-27] MEDS ORDERED: MORPHINE IV PRN ×2 (21:09)
[2018-08-27] MEDS ORDERED: TORADOL IV PRN (21:09)
[2018-08-27] MEDS ORDERED: LANSINOH TP PRN (21:09)
[2018-08-27] MEDS ORDERED: TYLENOL PO PRN (21:09)
[2018-08-27] MEDS ORDERED: ANUCORT-HC PR PRN (21:09)
[2018-08-27] MEDS ORDERED: SENOKOT PO PRN (21:09)
[2018-08-27] MEDS ORDERED: MILK OF MAGNESIA PO PRN (21:09)
[2018-08-27] MEDS ORDERED: MYLICON PO PRN (21:09)
--- NOTE | 2018-08-27 21:09 | Operative Report ---
Operative Report Operative Report: Preoperative diagnosis 1. SIUP at 32 weeks and 3 days gestation in labor. 2. malpresentation (breech). Postoperative diagnosis: Same. Procedure: Primary low-transverse section. Surgeon: Dr. Marie Market Development Manager: none Anesthesia: epidural. IVF: RL 1.9 liter EBL: 650 cc Urine: 150 cc clear Complications: Intraoperative uterine atony responsive to IV Pitocin and IM methergine. Intraoperative findings: 1. A male infant found in an double footling presentation, nuchal cord 1, d elivered at 8:11 PM, Apgars 8 at 1 minute and 8 at 5 minutes, weight 4 lbs. 9 oz. 2. Normal fallopian tubes and ovaries bilaterally. Procedure details: Risks, benefits, and alternatives of the procedure were discussed in detail with the patient which included but not limited to the risk of infection, hemorrhage requiring blood transfusion, injury to the bowel or bladder and blood vessels. The patient expressed understanding, her questions were answered, and she gave informed consent. The patient was taken to the operating room with an IV fluid infusing Ringers lactate. In the operating room, she was placed in a dorsal supine position with a leftward tilt. She was loaded with epidural anesthesia. Maurer catheter in Venodyne boots were placed. The abdomen was washed and she was prepared and draped in usual sterile fashion. After confirming adequate epidural anesthesia, the Pfannenstiel skin incision was made in the lower abdomen about 2 cm above the pubic symphysis using the scalpel. This incision was carried down to the underlying fascia using the Bovie. The fascia was opened bilaterally in a curvilinear fashion using the Bovie. 2 straight Kocker clamps were used to grasp the upper edge of the fascia from which the underlying rectus abdominis muscles was dissected off using the Bovie. A similar procedure was done with the lower edge of the fascia to dissect the underlying rectus abdominis muscle. The muscle was bluntly from the midline by pulling. The parietal peritoneum was grasped with 2 hemostat clamps and entered sharply using Metzenbaum scissors. A quick survey of the anatomy revealed a gravid uterus, normal fallopian tubes and ovaries bilaterally. A bladder flap was created. Mack'O retractor was placed in the incision for proper visualization. A low transverse incision was made in the lower uterine segment using the scalpel and extended bilaterally in a curvilinear fashion using bandage scissors. There was copious amount of clear amniotic fluid. The infant was found in a double footling presentation. The body was delivered up to the thorax, the anterior arm was delivered, the body was rotated to 180 degrees to bring the posterior arm to an anterior position and it was delivered. The head was flexed and delivered atraumatically at 8:11 PM. There was nuchal cord 1. The cord was clamped 2 and cut and the was handed off to the waiting district customs director. The was a male, Apgars were 8 at 1 minute and 8 at 5 minutes, weight was 4 pounds and 9 ounces. Cord blood was collected. The placenta was delivered manually and it was complete with a three-vessel cord. The uterine cavity was cleaned of clots and debris using dry lap sponges. The uterine incision was repaired in a running locked fashion using 0 Vicryl sutures. A second layer of imbrication was placed. The gutters were cleaned of clots and debris using dry lap sponges. After confirming adequate hemostasis, the instruments were removed from the abdominal cavity. The rectus muscle was reapproximated in an interrupted fashion using 0 Vicryl sutures. The fascia was closed in a running fashion using 0 Vicryl sutures. The skin was closed with catalino. Sterile dressing was placed. The counts of laps, needles, sponges, and instruments were correct 2. The patient tolerated the procedure well, she was taken to the recovery room in a stable condition.
[2018-08-27] MEDS ORDERED: ANCEF/NS 1 GM/50 ML 1 GM/50 ML BAG IV SCH (22:00)
[2018-08-28] MEDS: LACTATED RINGERS 1,000 ML IV SCH ×2 (02:58→14:35)
[2018-08-28] MEDS: ANCEF/NS 1 GM/50 ML 1 GM/50 ML BAG IV SCH ×2 (03:19→13:31)
[2018-08-28] MEDS: TORADOL IV PRN ×2 (05:42→14:32)
[2018-08-28 09:51] LABS: Hematocrit 28.8 % (30.3-42.9); Hemoglobin 9.7 gm/dl (10.1-14.3)
[2018-08-28] MEDS: FEOSOL PO SCH (10:09)
[2018-08-28] MEDS: PRENATAL VITAMIN PO SCH (10:10)
[2018-08-28] MEDS: PROCARDIA*For Tocolysis only PO SCH (10:15)
--- NOTE | 2018-08-28 11:32 | Progress Note ---
Assessment and Plan 1) S/P primary low transverse Current Visit: Yes Status: Acute Plan to address problem: POD 1 - stable Continue routine postop orders Ambulation encouraged, as tolerated (2) Anemia in puerperium, baby delivered during current episode of care Current Visit: Yes Status: Acute Plan to address problem: Asymptomatic Continue iron therapy Subjective - Subjective Date of service: 08/28/18 Principal diagnosis: POD#1 s/p Primary c/s Interval history: See H&P and operative note Patient reports: appetite normal, voiding normally, pain well controlled, flatus, ambulating normally, no bowel movement : in NICU (prematurity) Objective - Vital Signs Latest vital signs: Vital Signs Temp Pulse Resp BP BP Pulse Ox 08/28/18 07:45 98.1 F 86 18 110/59 96 08/28/18 03:30 98.6 F 90 18 111/69 08/27/18 23:15 97.5 F L 90 20 119/77 08/27/18 22:25 97.7 F 84 14 91/43 95 08/27/18 22:07 87 11 L 85/37 98 08/27/18 21:50 78 10 L 108/44 100 08/27/18 21:35 91 H 11 L 92/52 99 08/27/18 21:20 94 H 12 106/41 99 08/27/18 21:15 93 H 17 107/52 100 08/27/18 21:10 97.6 F 100 H 13 105/48 99 08/27/18 19:02 115 H 100 08/27/18 18:57 103 H 100 08/27/18 18:52 110 H 100 08/27/18 18:47 113 H 100 08/27/18 18:42 101 H 100 08/27/18 18:41 102 H 117/58 08/27/18 18:37 102 H 100 08/27/18 18:32 97 H 100 08/27/18 18:27 104 H 100 08/27/18 18:22 110 H 99 08/27/18 18:17 102 H 100 08/27/18 18:12 111 H 99 08/27/18 18:07 108 H 97 08/27/18 18:02 103 H 99 08/27/18 17:57 99 H 99 08/27/18 17:52 98 H 98 08/27/18 17:47 90 98 08/27/18 17:42 79 97 08/27/18 17:41 93 H 109/65 08/27/18 17:37 81 97 08/27/18 17:32 76 97 08/27/18 17:27 80 97 08/27/18 17:22 79 96 08/27/18 17:17 86 97 08/27/18 17:12 81 98 08/27/18 17:07 93 H 97 08/27/18 17:02 89 98 08/27/18 16:57 95 H 95 08/27/18 16:52 108 H 96 08/27/18 16:47 101 H 98 08/27/18 16:42 104 H 98 08/27/18 16:41 102 H 114/70 08/27/18 16:40 97.0 F L 18 08/27/18 16:37 104 H 98 08/27/18 16:33 113 H 94 08/27/18 16:32 91 H 95 08/27/18 16:27 91 H 95 08/27/18 16:26 87 94 08/27/18 16:22 89 95 08/27/18 16:17 92 H 94 08/27/18 16:12 99 H 96 08/27/18 16:08 95 H 94 08/27/18 16:07 93 H 95 08/27/18 16:03 94 H 94 08/27/18 16:02 95 H 95 08/27/18 15:57 97 H 96 08/27/18 15:54 112 H 91 08/27/18 15:52 105 H 99 08/27/18 15:47 101 H 97 08/27/18 15:42 97 H 94 08/27/18 15:41 101 H 95 08/27/18 15:01 38 L 0 L 08/27/18 14:57 97 H 90 08/27/18 14:56 100 08/27/18 14:53 90 96/59 08/27/18 14:47 90 98 08/27/18 14:42 86 96 08/27/18 14:37 91 H 97 08/27/18 13:44 93 H 97 08/27/18 13:39 91 H 98 08/27/18 13:34 94 H 97 08/27/18 13:33 99 H 73 L 08/27/18 13:29 103 H 98 08/27/18 13:24 92 H 98 08/27/18 13:19 90 98 08/27/18 13:14 89 97 08/27/18 13:09 90 98 08/27/18 13:04 91 H 97 08/27/18 13:00 98.1 F 16 08/27/18 12:59 93 H 96 08/27/18 12:54 92 H 96 08/27/18 12:49 91 H 97 08/27/18 12:44 98 H 96 08/27/18 12:39 103 H 98 08/27/18 12:34 98 H 95 08/27/18 12:33 100 H 119/68 94 08/27/18 12:29 102 H 95 08/27/18 12:26 93 H 94 08/27/18 12:24 95 H 96 08/27/18 12:19 92 H 96 08/27/18 12:14 94 H 95 08/27/18 12:11 93 H 94 08/27/18 12:09 96 H 96 08/27/18 12:04 97 H 96 08/27/18 11:59 94 H 97 08/27/18 11:57 97.9 F 16 08/27/18 11:54 103 H 98 08/27/18 11:49 96 H 97 08/27/18 11:44 98 H 95 08/27/18 11:39 98 H 95 08/27/18 11:34 99 H 96 Intake and Output 08/27/18 08/28/18 08/28/18 23:59 07:59 15:59 Intake Total 2100 180 120 Output Total 450 700 200 Balance 1650 -520 -80 Intake: IV 2100 Oral 120 Intake, Free Water 180 Output: Urine 450 700 200 Indwelling Catheter 700 200 Uretheral (Maurer) 150 Other: Total, Intake Amount 120 Total, Output Amount 700 200 Estimated Blood Loss 650 - Exam Breasts: Present: normal Cardiovascular: Present: Regular rate, Normal S1, Normal S2, No murmurs Lungs: Present: Clear to auscultation, Normal air movement Abdomen: Present: normal appearance, soft, tenderness (as expected), normal bowel sounds. Absent: distention Vulva: both: normal Uterus: Present: firm, fundal height at umbilicus Extremities: Present: normal, edema (trace) Deep Tendon Reflex Grade: Normal +2 Incision: Present: normal, dry, intact, dressed (pressure dressing CDI) - Labs Labs: Abnormal lab results 08/28/18 Range/Units 09:21 Hgb 9.7 L (10.1-14.3) gm/dl Hct 28.8 L (30.3-42.9) %
[2018-08-28] MEDS: PERCOCET 5/325 PO PRN (14:34)
[2018-08-29] MEDS: IBUPROFEN PO PRN ×3 (05:46→18:02)
[2018-08-29] MEDS: PERCOCET 5/325 PO PRN ×2 (05:47→16:12)
[2018-08-29] MEDS: FEOSOL PO SCH (10:34)
[2018-08-29] MEDS: PRENATAL VITAMIN PO SCH (10:34)
--- NOTE | 2018-08-29 10:40 | Progress Note ---
Assessment and Plan A: POD #2 Asymptomatic Anemia P: Follow Routine PostOp Orders Continue PO FESO4 D/C Home in the AM RTO in One Week Subjective - Subjective Date of service: 08/29/18 Principal diagnosis: POD#1 s/p Primary c/s Patient reports: appetite normal, voiding normally, pain well controlled, flatus, ambulating normally : doing well, bottle feeding Objective - Vital Signs Latest vital signs: Vital Signs Temp Pulse Resp BP BP Pulse Ox 08/29/18 08:52 98.5 F 81 20 105/68 98 08/29/18 05:47 18 08/29/18 05:46 20 08/28/18 21:15 98.6 F 94 H 18 96/50 08/28/18 14:25 98.3 F 98 H 22 96/61 98 Intake and Output 08/28/18 08/29/18 08/29/18 22:59 06:59 14:59 Intake Total 520 240 840 Output Total 500 Balance 20 240 840 Intake: Oral 120 240 120 Intake, Free Water 720 Other 400 Output: Urine 500 Void 500 Other: Total, Intake Amount 120 240 120 Total, Output Amount 200 # Voids Void 400 1 1 - Exam Cardiovascular: Present: Regular rate Lungs: Present: Clear to auscultation, Normal air movement Abdomen: Present: normal appearance, soft, normal bowel sounds Uterus: Present: normal, firm, fundal height below umbilicus Extremities: Present: normal Incision: Present: normal, dry, intact
--- NOTE | 2018-08-29 10:42 | Discharge Summary ---
Providers - Providers Date of Admission: 08/27/18 00:17 Date of discharge: 08/30/18 Attending physician: MALISSA FULLER 08/27/18 07:33 Consult to Physician [CONS] Urgent Comment: Consulting Provider: NICCI HEALY Physician Instructions: Reason For Exam: labor Primary care physician: MALISSA FULLER Hospitalization Reason for admission: active labor Delivery: Procedure: primary low transverse Episiotomy: none Laceration: none Incision: normal, dry, intact complications: none Discharge diagnosis: delivery [place] baby: male Condition at discharge: Good Disposition: DC- TO HOME OR SELFCARE Plan - Discharge Medications Prescriptions: Ibuprofen [Motrin] 800 mg PO Q8HR PRN #30 tablet PRN Reason: Paralysis oxyCODONE /ACETAMINOPHEN [Percocet 5/325] 1 tab PO Q4HR #14 tab - Provider Discharge Summary Activity: routine, no sex for 6 weeks, no heavy lifting 4 weeks, no strenuous exercise Diet: routine Instructions: routine Additional instructions: [] Smoking cessation referral if applicable(refer to patient education folder for contact #) [] Refer to [facility] Booklet Call your doctor immediately for: * Fever > 100.5 * Heavy vaginal bleeding ( >1 pad per hour) * Severe persistent headache * Shortness of breath * Reddened, hot, painful area to leg or breast * Drainage or odor from incision. * Keep incision clean and dry at all times and follow doctor's instructions regarding bathing/showering - Follow up plan Follow up: MALISSA FULLER [Primary Care Provider] - 7 Days
[2018-08-30] MEDS: PERCOCET 5/325 PO PRN (03:45)
[2018-08-30] MEDS: IBUPROFEN PO PRN (03:46)
[2018-08-30 09:25] VITALS: BP 118/68
[2018-08-30] MEDS: PRENATAL VITAMIN PO SCH (09:53)
[2018-08-30] MEDS: FEOSOL PO SCH (09:54)
== END 2018-08-30 10:00 | disposition home or self-care (01) | DRG 765 ==
LOC: TRG 23:05 → LD 08-27 00:17 → OB 08-28 02:01
PROVIDERS: ADMIT Obstetrics & Gynecology; ATTEND Obstetrics & Gynecology
PROC: 10D00Z1 Extraction of Products of Conception, Low, Open Approach (ICD-10-PCS; principal; 2018-08-27)
DX: O69.81X0 Labor and delivery complicated by cord around neck, without compression, not applicable or unspecified (principal); O60.14X0 Preterm labor third trimester with preterm delivery third trimester, not applicable or unspecified; O32.1XX0 Maternal care for breech presentation, not applicable or unspecified; O99.344 Other mental disorders complicating childbirth; F41.9 Anxiety disorder, unspecified; O99.03 Anemia complicating the puerperium; D64.9 Anemia, unspecified; Z3A.32 32 weeks gestation of pregnancy; Z83.3 Family history of diabetes mellitus; Z37.0 Single live birth
CPT/HCPCS: 36415; 76816; 76819; 80307; 81001; 82731; 83036; 83735; 85014; 85018; 85027; 86592; 86706; 86762; 86803; 86850; 86900; 86901; 87086; 87116; 87591; 87806; 88307; G0378; J0290; J0690; J0696; J0702; J1885; J2210; J2250; J2270; J2274; J2370; J2405; J2590; J2704; J2765; J3010; J3105; J3475; J7120

== ENCOUNTER 2018-09-09 18:18 | Emergency (ER) | payer OTHER ==
[2018-09-09 19:19] LABS: Hemoglobin 11.8 gm/dl (10.1-14.3); Mean Corpuscular HGB Conc 33 % (30-34); Mean Corpuscular Volume 89 fl (79-97); Platelet Count 413 K/mm3 (140-440); Red Blood Count 4.03 M/mm3 (3.65-5.03); Red Cell Distribution Width 13.7 % (13.2-15.2)
[2018-09-09 19:30] LABS: INR 1.01 (0.87-1.13); Partial Thromboplastin Time 20.8 Sec. (24.2-36.6)
[2018-09-09 19:32] LABS: Bilirubin,Urine NEG (Negative); Blood,Urine SM (Negative); Color,Urine Yellow (Yellow); Mucus,Urine 3+ /HPF; Protein,Urine <15 mg/dL mg/dL (Negative); Urobilinogen,Urine < 2.0 mg/dL (<2.0)
[2018-09-09 19:38] LABS: Alanine Aminotransferase 10 units/L (7-56); Albumin 3.6 g/dL (3.9-5); BUN/Creatinine Ratio 12; Blood Urea Nitrogen 11 mg/dL (7-17); Calcium 9.3 mg/dL (8.4-10.2); Hemolysis Index 3
[2018-09-09] MEDS ORDERED: NACL 0.9% 1000 ML 1,000 ML IV ONE (20:20)
[2018-09-09] MEDS ORDERED: TORADOL IV ONE (20:49)
[2018-09-09] MEDS ORDERED: LEVAQUIN PO ONE (21:22)
--- NOTE | 2018-09-09 22:04 | Emergency Department Report ---
ED Headache HPI - General Chief Complaint: Headache Stated Complaint: NECK/BACK/HEADACHE Time Seen by Provider: 09/09/18 20:07 - History of Present Illness Initial Comments: 23-year-old female, 13 days , since the ED with intermittent headaches. Patient reports posterior headache, relieved with ibuprofen and oxycodone that she was given for her . Patient reports that she did have an epidural during delivery. Patient denies fever, nausea, vomiting. Patient reports onset of right mid back pain on yesterday. Timing/Duration: other (13 days) Quality: mild, throbbing, other (intermittent) Associated Symptoms: denies: fever/chills, nausea/vomiting Allergies/Adverse Reactions: Allergies peanut Allergy (Verified 08/28/18 03:48) Anaphylaxis Home Medications: Ambulatory Orders Ibuprofen [Motrin] 800 mg PO Q8HR PRN #30 tablet 08/28/18 oxyCODONE /ACETAMINOPHEN [Percocet 5/325] 1 tab PO Q4HR #14 tab 08/28/18 Ciprofloxacin HCl [Cipro] 500 mg PO BID #14 tablet 09/09/18 ED Review of Systems ROS: Stated complaint: NECK/BACK/HEADACHE Other details as noted in HPI Comment: All other systems reviewed and negative Constitutional: denies: chills, fever Gastrointestinal: abdominal pain Musculoskeletal: back pain Neurological: headache ED Past Medical Hx - Past Medical History Previous Medical History?: No Hx Hypertension: No Hx Congestive Heart Failure: No Hx Diabetes: No Hx Deep Vein Thrombosis: No Hx Renal Disease: No Hx Sickle Cell Disease: No Hx Seizures: No Hx Asthma: No Hx COPD: No Hx HIV: No - Surgical History Past Surgical History?: No - Social History Smoking Status: Never Smoker Substance Use Type: None - Medications Home Medications: Home Medications Medication Instructions Recorded Confirmed Last Taken Type Ibuprofen [Motrin] 800 mg PO Q8HR PRN #30 tablet 08/28/18 Unknown Rx oxyCODONE /ACETAMINOPHEN [Percocet 1 tab PO Q4HR #14 tab 08/28/18 Unknown Rx 5/325] Ciprofloxacin HCl [Cipro] 500 mg PO BID #14 tablet 09/09/18 Unknown Rx ED Physical Exam - General Limitations: No Limitations General appearance: alert, in no apparent distress - Head Head exam: Present: atraumatic, normocephalic - Eye Eye exam: Present: normal appearance - ENT ENT exam: Present: mucous membranes moist - Neck Neck exam: Present: normal inspection, full ROM. Absent: meningismus - Respiratory Respiratory exam: Present: normal lung sounds bilaterally. Absent: respiratory distress - Cardiovascular Cardiovascular Exam: Present: regular rate, normal rhythm - GI/Abdominal GI/Abdominal exam: Present: soft, tenderness (mild suprapubic). Absent: distended - Extremities Exam Extremities exam: Present: normal inspection - Back Exam Back exam: Present: CVA tenderness (R) - Neurological Exam Neurological exam: Present: alert, oriented X3, CN II-XII intact. Absent: motor sensory deficit - Psychiatric Psychiatric exam: Present: normal affect, normal mood - Skin Skin exam: Present: warm, dry, intact, normal color ED Course Vital Signs 09/09/18 09/09/18 09/09/18 18:42 21:29 22:18 Temperature 98.6 F 98.4 F 98.4 F Pulse Rate 83 76 69 Respiratory 18 20 20 Rate Blood Pressure 119/69 Blood Pressure 115/67 114/71 [Right] O2 Sat by Pulse 98 99 Oximetry ED Medical Decision Making - Lab Data Result diagrams: 09/09/18 19:10 09/09/18 19:03 - Medical Decision Making 23-year-old female with headache and right flank pain with CVA tenderness. Patient has no meningeal signs on exam. Her exam is normal. UA shows evidence of infection. With pyelonephritis. Vital signs normal. Patient given IV fluids and Toradol, reports relief of headache and flank pain. Patient given dose of Levaquin for treatment of pyelonephritis. Give prescription for Cipro. She reports that she is breast-feeding, patient advised to pump and dump after taking the Cipro. Will discharge at this time. Return precautions given. - Differential Diagnosis tension GABRIEL, spinal GABRIEL, pyelonephritis Critical care attestation.: If time is entered above; I have spent that time in minutes in the direct care of this critically ill patient, excluding procedure time. ED Disposition Clinical Impression: Pyelonephritis, Headache Disposition: DC-01 TO HOME OR SELFCARE Is pt being admited?: No Condition: Stable Instructions: Acute Pyelonephritis (ED) Additional Instructions: Pump and dump breast milk 2 hours after you take each pill. Prescriptions: Ciprofloxacin HCl [Cipro] 500 mg PO BID #14 tablet Referrals: [facility] [Other] - 3-5 Days Time of Disposition: 22:04
[2018-09-09 22:18] VITALS: BP 114/71
== END 2018-09-09 22:23 | disposition home or self-care (01) ==
LOC: ED 18:18
DX: N10 Acute pyelonephritis (principal); R51 Headache
CPT/HCPCS: 36415; 80053; 81001; 83615; 85027; 85610; 85730; 96374; 99283; J1885; J7030

== ENCOUNTER 2020-10-15 19:51 | Emergency (ER) | payer OTHER ==
[2020-10-15 20:39] VITALS: BP 129/75
--- NOTE | 2020-10-15 20:58 | Emergency Department Report ---
ED Female HPI - General Chief complaint: Abdominal Pain Stated complaint: NAUSSEA VOMITING Source: patient Mode of arrival: Ambulatory Limitations: No Limitations - History of Present Illness Initial comments: 25-year-old -[place] female presents to the emergency room complaining of lower abdominal pain that started on Monday is intermittent and dull. Nipple pain and clear drainage for 2 weeks. And reports she had nausea but that has resolved. Patient states that her abdominal pain is intermittent nothing makes it worse nothing makes it better. Patient is taken Tylenol. Patient does admit to sexually active denies any vaginal discharge but does report vaginal bleeding as she is currently on her menstrual cycle. Patient does have a primary care provider but chose not to go. MD Complaint: pelvic pain Onset/Timin -: days(s) (Lower abdominal pain), week(s) (2 weeks for her nipple pain and drainage) - Related Data Previous Rx's Medication Instructions Recorded Last Taken Type Ibuprofen [Motrin] 800 mg PO Q8HR PRN #30 tablet 08/28/18 Unknown Rx oxyCODONE /ACETAMINOPHEN [Percocet 1 tab PO Q4HR #14 tab 08/28/18 Unknown Rx 5/325] Ciprofloxacin HCl [Cipro] 500 mg PO BID #14 tablet 09/09/18 Unknown Rx Nitrofurantoin [place]/M-Cryst 100 mg PO Q12HR 10 Days #20 capsule 10/15/20 Unknown Rx [Macrobid CAP] Allergies Allergy/AdvReac Type Severity Reaction Status Date / Time peanut Allergy Anaphylaxis Verified 08/28/18 03:48 ED Review of Systems ROS: Stated complaint: NAUSSEA VOMITING Other details as noted in HPI Comment: All other systems reviewed and negative ED Past Medical Hx - Past Medical History Previous Medical History?: No Hx Hypertension: No Hx Congestive Heart Failure: No Hx Diabetes: No Hx Deep Vein Thrombosis: No Hx Renal Disease: No Hx Sickle Cell Disease: No Hx Seizures: No Hx Asthma: No Hx COPD: No Hx HIV: No - Surgical History Past Surgical History?: No - Social History Smoking Status: Never Smoker Substance Use Type: None - Medications Home Medications: Home Medications Medication Instructions Recorded Confirmed Last Taken Type Ibuprofen [Motrin] 800 mg PO Q8HR PRN #30 tablet 08/28/18 Unknown Rx oxyCODONE /ACETAMINOPHEN [Percocet 1 tab PO Q4HR #14 tab 08/28/18 Unknown Rx 5/325] Ciprofloxacin HCl [Cipro] 500 mg PO BID #14 tablet 09/09/18 Unknown Rx Nitrofurantoin [place]/M-Cryst 100 mg PO Q12HR 10 Days #20 capsule 10/15/20 Unknown Rx [Macrobid CAP] ED Physical Exam - General Limitations: No Limitations General appearance: alert, in no apparent distress - Head Head exam: Present: atraumatic, normocephalic - Eye Eye exam: Present: normal appearance - ENT ENT exam: Present: mucous membranes moist - Neck Neck exam: Present: normal inspection, full ROM - Respiratory Respiratory exam: Present: normal lung sounds bilaterally. Absent: chest wall tenderness - Cardiovascular Cardiovascular Exam: Present: regular rate, normal rhythm. Absent: systolic murmur, diastolic murmur, rubs, gallop - GI/Abdominal GI/Abdominal exam: Present: soft, normal bowel sounds ED Course Vital Signs 10/15/20 20:36 Temperature 98.3 F Pulse Rate 78 Respiratory 20 Rate Blood Pressure 129/75 O2 Sat by Pulse 98 Oximetry ED Medical Decision Making - Lab Data Laboratory Tests 10/15/20 20:17 Urine Color Red Urine Turbidity Cloudy Urine pH 6.0 Ur Specific [place] 1.025 Urine Protein 100 mg/dl Urine Glucose (UA) Neg Urine Ketones Neg Urine Blood Lg Urine Nitrite Neg Urine Bilirubin Neg Urine Urobilinogen < 2.0 Ur Leukocyte Esterase Sm Urine WBC (Auto) 23.0 H Urine RBC (Auto) 11.0 U Epithel Cells (Auto) 81.0 H Urine Bacteria (Auto) 2+ Urine Mucus Few Urine HCG, Qual Negative Critical care attestation.: If time is entered above; I have spent that time in minutes in the direct care of this critically ill patient, excluding procedure time. ED Disposition Clinical Impression: UTI (urinary tract infection) Disposition: DC-01 TO HOME OR SELFCARE Is pt being admited?: No Does the pt Need Aspirin: No Condition: Stable Instructions: Abdominal Pain (ED), Urinary Tract Infection, Adult, [id number] Additional Instructions: Urinalysis shows that you have a urinary tract infection. You have a negative urine test. Complete your antibiotics as prescribed. Increase your water intake. Void after intercourse. And follow-up with the [facility] for any further concerns. Prescriptions: Nitrofurantoin [place]/M-Cryst [Macrobid CAP] 100 mg PO Q12HR 10 Days #20 capsule Referrals: PRIMARY CARE, [Primary Care Provider] - 3-5 Days [facility] [Provider Group] - 3-5 Days Forms: Work/School Release Form(ED)
[2020-10-15 21:15] LABS: Bacteria,Urine 2+ /HPF (Negative); Bilirubin,Urine NEG (Negative); Blood,Urine LG (Negative); Color,Urine Red (Yellow); Mucus,Urine FEW /HPF; Urobilinogen,Urine < 2.0 mg/dL (<2.0)
[2020-10-15 21:18] LABS: HCG Qualitative,Urine Negative (Negative)
== END 2020-10-15 22:30 | disposition home or self-care (01) ==
LOC: ED 19:51
DX: N39.0 Urinary tract infection, site not specified (principal); Z79.1 Long term (current) use of non-steroidal anti-inflammatories (NSAID); Z79.899 Other long term (current) drug therapy; Z91.010 Allergy to peanuts
CPT/HCPCS: 81001; 81025; 87076; 87086; 87186

== ENCOUNTER 2021-09-16 11:20 | Emergency (ER) | payer OTHER ==
[2021-09-16] MEDS ORDERED: oxyCODONE /ACETAMINOPHEN 5-325MG TAB PO ONE (12:23)
[2021-09-16] MEDS ORDERED: ONDANSETRON 4 MG ODT TAB PO ONE (12:24)
--- NOTE | 2021-09-16 12:27 | Emergency Department Report ---
ED General Adult HPI - General Chief complaint: Abdominal Pain Stated complaint: LOWER ABD/PELVIC/TOOTH PAIN Time Seen by Provider: 09/16/21 11:52 Source: patient Mode of arrival: Ambulatory Limitations: No Limitations - History of Present Illness Initial comments: 26-year-old -[place] female patient presents with complaints of sudden onset of pelvic pain this morning. She admits to urinary frequency, but denies any dysuria/hematuria, vaginal discharge, dyspareunia, risky sexual behavior, fever/chills/sweats, vomiting, or stool changes. Past surgical history includes a section. Last menstrual cycle was 1 month ago per patient. She also complains of dental pain due to her wisdom tooth 4 weeks, suddenly worsening over the past few days. Patient states she does have a dental appointment scheduled for 10/07/2021. No facial swelling or difficulty swallowing per patient. NKDA per patient. Patient does report history of ovarian cysts - Related Data Previous Rx's Medication Instructions Recorded Last Taken Type Ibuprofen [Motrin] 800 mg PO Q8HR PRN #30 tablet 08/28/18 Unknown Rx oxyCODONE /ACETAMINOPHEN [Percocet 1 tab PO Q4HR #14 tab 08/28/18 Unknown Rx 5/325] Ciprofloxacin HCl [Cipro] 500 mg PO BID #14 tablet 09/09/18 Unknown Rx Nitrofurantoin [place]/M-Cryst 100 mg PO Q12HR 10 Days #20 capsule 10/15/20 Unknown Rx [Macrobid CAP] Acetaminophen/Codeine [Tylenol 1 tab PO Q8H PRN #8 tab 09/16/21 Unknown Rx /Codeine # 3 tab] Fluconazole [Diflucan TAB] 150 mg PO QDAY PRN #1 tablet 09/16/21 Unknown Rx Ibuprofen [Motrin 800 MG tab] 800 mg PO Q8HR PRN #20 tablet 09/16/21 Unknown Rx Penicillin V Potassium 500 mg PO TID 7 Days #21 tab 09/16/21 Unknown Rx Sulfamethoxazole/Trimethoprim 1 each PO BID 5 Days #10 tab 09/16/21 Unknown Rx [Bactrim DS TAB] Allergies Allergy/AdvReac Type Severity Reaction Status Date / Time peanut Allergy Anaphylaxis Verified 08/28/18 03:48 ED Review of Systems ROS: Stated complaint: LOWER ABD/PELVIC/TOOTH PAIN Other details as noted in HPI Constitutional: denies: chills, fever, malaise ENT: dental pain. denies: throat pain Respiratory: denies: cough, shortness of breath Cardiovascular: denies: chest pain Gastrointestinal: denies: nausea, vomiting, diarrhea, constipation, hematemesis, melena, hematochezia Genitourinary: urgency, frequency. denies: dysuria, hematuria, discharge, abnormal menses Musculoskeletal: denies: back pain Skin: denies: rash, lesions, change in color Neurological: denies: headache Hematological/Lymphatic: denies: swollen glands ED Past Medical Hx - Past Medical History Hx Hypertension: No Hx Congestive Heart Failure: No Hx Diabetes: No Hx Deep Vein Thrombosis: No Hx Renal Disease: No Hx Sickle Cell Disease: No Hx Seizures: No Hx Asthma: No Hx COPD: No Hx HIV: No - Surgical History Past Surgical History?: No - Social History Smoking Status: Never Smoker Substance Use Type: None - Medications Home Medications: Home Medications Medication Instructions Recorded Confirmed Last Taken Type Ibuprofen [Motrin] 800 mg PO Q8HR PRN #30 tablet 08/28/18 Unknown Rx oxyCODONE /ACETAMINOPHEN [Percocet 1 tab PO Q4HR #14 tab 08/28/18 Unknown Rx 5/325] Ciprofloxacin HCl [Cipro] 500 mg PO BID #14 tablet 09/09/18 Unknown Rx Nitrofurantoin [place]/M-Cryst 100 mg PO Q12HR 10 Days #20 capsule 10/15/20 Unknown Rx [Macrobid CAP] Acetaminophen/Codeine [Tylenol 1 tab PO Q8H PRN #8 tab 09/16/21 Unknown Rx /Codeine # 3 tab] Fluconazole [Diflucan TAB] 150 mg PO QDAY PRN #1 tablet 09/16/21 Unknown Rx Ibuprofen [Motrin 800 MG tab] 800 mg PO Q8HR PRN #20 tablet 09/16/21 Unknown Rx Penicillin V Potassium 500 mg PO TID 7 Days #21 tab 09/16/21 Unknown Rx Sulfamethoxazole/Trimethoprim 1 each PO BID 5 Days #10 tab 09/16/21 Unknown Rx [Bactrim DS TAB] ED Physical Exam - General Limitations: No Limitations General appearance: alert, in no apparent distress, obese - Head Head exam: Present: atraumatic, normocephalic - Eye Eye exam: Present: normal appearance - Expanded ENT Exam Expanded Mouth exam: Absent: drooling, trismus, muffled voice Teeth exam: Present: dental caries 1 - Dental Tenderness (Deep dental carry noted with surrounding erythema; no obvious dental abscess or overlying facial swelling noted) - Neck Neck exam: Present: normal inspection - Respiratory Respiratory exam: Present: normal lung sounds bilaterally. Absent: respiratory distress - Cardiovascular Cardiovascular Exam: Present: regular rate, normal rhythm - GI/Abdominal GI/Abdominal exam: Present: soft, tenderness (Suprapubic, bilateral), normal bowel sounds. Absent: distended, guarding, rebound, rigid - Back Exam Back exam: Present: normal inspection. Absent: CVA tenderness (R), CVA tenderness (L) - Neurological Exam Neurological exam: Present: alert, oriented X3 - Psychiatric Psychiatric exam: Present: normal affect, normal mood - Skin Skin exam: Present: warm, dry, intact, normal color. Absent: rash ED Course Vital Signs 09/16/21 11:44 Temperature 98.4 F Pulse Rate 79 Respiratory 18 Rate Blood Pressure 118/76 O2 Sat by Pulse 98 Oximetry ED Medical Decision Making - Lab Data Result diagrams: 09/16/21 12:33 09/16/21 12:33 Lab Results 09/16/21 09/16/21 09/16/21 Range/Units 12:33 12:33 12:33 WBC 9.6 (4.5-11.0) K/mm3 RBC 4.46 (3.65-5.03) M/mm3 Hgb 13.2 (10.1-14.3) gm/dl Hct 39.6 (30.3-42.9) % MCV 89 (79-97) fl MCH 30 (28-32) pg MCHC 33 (30-34) % RDW 14.4 (13.2-15.2) % Plt Count 248 (140-440) K/mm3 Lymph % (Auto) 23.1 (13.4-35.0) % [place] % (Auto) 4.5 (0.0-7.3) % Eos % (Auto) 0.9 (0.0-4.3) % Baso % (Auto) 0.9 (0.0-1.8) % Lymph # (Auto) 2.2 (1.2-5.4) K/mm3 [place] # (Auto) 0.4 (0.0-0.8) K/mm3 Eos # (Auto) 0.1 (0.0-0.4) K/mm3 Baso # (Auto) 0.1 (0.0-0.1) K/mm3 Seg Neutrophils % 70.6 H (40.0-70.0) % Seg Neutrophils # 6.7 (1.8-7.7) K/mm3 Sodium 140 (137-145) mmol/L Potassium 3.7 (3.6-5.0) mmol/L Chloride 106.5 (98-107) mmol/L Carbon Dioxide 24 (22-30) mmol/L Anion Gap 13 mmol/L BUN 8 (7-17) mg/dL Creatinine 1.0 (0.6-1.2) mg/dL Estimated GFR > 60 ml/min BUN/Creatinine Ratio 8 % Glucose 107 H (65-100) mg/dL Calcium 9.3 (8.4-10.2) mg/dL Total Bilirubin 0.30 (0.1-1.2) mg/dL AST 16 (5-40) units/L ALT 17 (7-56) units/L Alkaline Phosphatase 85 (35-129) units/L Total Protein 7.3 (6.3-8.2) g/dL Albumin 3.7 L (3.9-5) g/dL Albumin/Globulin Ratio 1.0 % Lipase 30 (13-60) units/L HCG, Qual Negative (Negative) Urine Color (Yellow) Urine Turbidity (Clear) Urine pH (5.0-7.0) Ur Specific [place] (1.003-1.030) Urine Protein (Negative) mg/dL Urine Glucose (UA) (Negative) mg/dL Urine Ketones (Negative) mg/dL Urine Blood (Negative) Urine Nitrite (Negative) Urine Bilirubin (Negative) Urine Urobilinogen (<2.0) mg/dL Ur Leukocyte Esterase (Negative) Urine WBC (Auto) (0.0-6.0) /HPF Urine RBC (Auto) (0.0-6.0) /HPF U Epithel Cells (Auto) (0-13.0) /HPF Urine Mucus /HPF Urine Yeast (Budding) /HPF 09/16/21 Range/Units 13:52 WBC (4.5-11.0) K/mm3 RBC (3.65-5.03) M/mm3 Hgb (10.1-14.3) gm/dl Hct (30.3-42.9) % MCV (79-97) fl MCH (28-32) pg MCHC (30-34) % RDW (13.2-15.2) % Plt Count (140-440) K/mm3 Lymph % (Auto) (13.4-35.0) % [place] % (Auto) (0.0-7.3) % Eos % (Auto) (0.0-4.3) % Baso % (Auto) (0.0-1.8) % Lymph # (Auto) (1.2-5.4) K/mm3 [place] # (Auto) (0.0-0.8) K/mm3 Eos # (Auto) (0.0-0.4) K/mm3 Baso # (Auto) (0.0-0.1) K/mm3 Seg Neutrophils % (40.0-70.0) % Seg Neutrophils # (1.8-7.7) K/mm3 Sodium (137-145) mmol/L Potassium (3.6-5.0) mmol/L Chloride (98-107) mmol/L Carbon Dioxide (22-30) mmol/L Anion Gap mmol/L BUN (7-17) mg/dL Creatinine (0.6-1.2) mg/dL Estimated GFR ml/min BUN/Creatinine Ratio % Glucose (65-100) mg/dL Calcium (8.4-10.2) mg/dL Total Bilirubin (0.1-1.2) mg/dL AST (5-40) units/L ALT (7-56) units/L Alkaline Phosphatase (35-129) units/L Total Protein (6.3-8.2) g/dL Albumin (3.9-5) g/dL Albumin/Globulin Ratio % Lipase (13-60) units/L HCG, Qual (Negative) Urine Color Yellow (Yellow) Urine Turbidity Slightly-cloudy (Clear) Urine pH 7.0 (5.0-7.0) Ur Specific [place] 1.018 (1.003-1.030) Urine Protein <15 mg/dl (Negative) mg/dL Urine Glucose (UA) Neg (Negative) mg/dL Urine Ketones Neg (Negative) mg/dL Urine Blood Neg (Negative) Urine Nitrite Neg (Negative) Urine Bilirubin Neg (Negative) Urine Urobilinogen < 2.0 (<2.0) mg/dL Ur Leukocyte Esterase Mod (Negative) Urine WBC (Auto) 58.0 H (0.0-6.0) /HPF Urine RBC (Auto) 2.0 (0.0-6.0) /HPF U Epithel Cells (Auto) 28.0 H (0-13.0) /HPF Urine Mucus Few /HPF Urine Yeast (Budding) 2+ /HPF - Radiology Data Radiology results: report reviewed ULTRASOUND PELVIS INDICATION / CLINICAL INFORMATION: pain. TECHNIQUE: Transabdominal. Duplex Color Doppler used: Yes. COMPARISON: None available FINDINGS: UTERUS: Present. - Appearance (if present): No significant abnormality. - Size in cm (if present): 7.2 x 3.5 x 3.9. - Endometrial Complex (if present): No significant abnormality.. Thickness in cm (if measured) = 0.7 - Mass lesions: None. - Additional findings: None. RIGHT ADNEXA: No significant ovarian cyst or mass. Normal color Doppler blood flow. LEFT ADNEXA: 4 cm left ovarian cyst. Normal color Doppler blood flow. URINARY BLADDER: No significant abnormality. FREE FLUID: None. ADDITIONAL FINDINGS: None. IMPRESSION: 1. No acute findings. 2. Left ovarian cyst measuring 4 cm that does not require dedicated follow-up in a patient of this age. - Medical Decision Making 26-year-old -[place] female patient presents with complaints of sudden onset of pelvic pain this morning. She admits to urinary frequency, but denies any dysuria/hematuria, vaginal discharge, dyspareunia, risky sexual behavior, fever/chills/sweats, vomiting, or stool changes. Past surgical history includes a section. Last menstrual cycle was 1 month ago per patient. She also complains of dental pain due to her wisdom tooth 4 weeks, suddenly worsening over the past few days. Patient states she does have a dental appointment scheduled for 10/07/2021. No facial swelling or difficulty swallowing per patient. NKDA per patient. Patient does report history of ovarian cysts UA shows UTI. Ultrasound shows 4 cm left ovarian cyst that does not require dedicated follow-up, patient is to history of this. Her vitals are within normal limits and her labs are otherwise without acute abnormalities. She is well-appearing and stable for discharge home. We will treat for UTI with Bactrim. Recommend follow-up with primary care in 3 to 5 days. Strict return precautions were discussed in detail with patient who verbalizes understanding Critical care attestation.: If time is entered above; I have spent that time in minutes in the direct care of this critically ill patient, excluding procedure time. ED Disposition Clinical Impression: UTI (urinary tract infection), Left ovarian cyst, Pain due to dental caries Disposition: HOME / SELF CARE / HOMELESS Is pt being admited?: No Condition: Stable Instructions: Abdominal Pain (ED), Urinary Tract Infection, Adult, [id number], Ovarian Cyst, Dental Abscess, [id number] Additional Instructions: Please follow-up with your dental specialist within 1 week Prescriptions: Sulfamethoxazole/Trimethoprim [Bactrim DS TAB] 1 each PO BID 5 Days #10 tab Fluconazole [Diflucan TAB] 150 mg PO QDAY PRN #1 tablet PRN Reason: yeast infection Ibuprofen [Motrin 800 MG tab] 800 mg PO Q8HR PRN #20 tablet PRN Reason: pain Penicillin V Potassium 500 mg PO TID 7 Days #21 tab Acetaminophen/Codeine [Tylenol /Codeine # 3 tab] 1 tab PO Q8H PRN #8 tab PRN Reason: Pain , Severe (7-10) Referrals: PRIMARY CARE, [Primary Care Provider] - 3-5 Days [facility] [Provider Group] - 3-5 Days Forms: Work/School Release Form(ED)
[2021-09-16 12:52] LABS: Basophils # (Auto) 0.1 K/mm3 (0.0-0.1); Basophils % (Auto) 0.9 % (0.0-1.8); Eosinophils # (Auto) 0.1 K/mm3 (0.0-0.4); Eosinophils % (Auto) 0.9 % (0.0-4.3); Hematocrit 39.6 % (30.3-42.9); Hemoglobin 13.2 gm/dl (10.1-14.3); Lymphocytes # (Auto) 2.2 K/mm3 (1.2-5.4); Lymphocytes % (Auto) 23.1 % (13.4-35.0); Mean Corpuscular HGB Conc 33 % (30-34); Mean Corpuscular Volume 89 fl (79-97); Monocytes # (Auto) 0.4 K/mm3 (0.0-0.8); Monocytes % (Auto) 4.5 % (0.0-7.3); Platelet Count 248 K/mm3 (140-440); Red Blood Count 4.46 M/mm3 (3.65-5.03); Red Cell Distribution Width 14.4 % (13.2-15.2)
[2021-09-16 13:35] LABS: Alanine Aminotransferase 17 units/L (7-56); Albumin 3.7 g/dL (3.9-5); BUN/Creatinine Ratio 8; Blood Urea Nitrogen 8 mg/dL (7-17); Calcium 9.3 mg/dL (8.4-10.2); Hemolysis Index 6
--- NOTE | 2021-09-16 13:35 | Ultrasound Report ---
ULTRASOUND PELVIS INDICATION / CLINICAL INFORMATION: pain. TECHNIQUE: Transabdominal. Duplex Color Doppler used: Yes. COMPARISON: None available FINDINGS: UTERUS: Present. - Appearance (if present): No significant abnormality. - Size in cm (if present): 7.2 x 3.5 x 3.9. - Endometrial Complex (if present): No significant abnormality.. Thickness in cm (if measured) = 0.7 - Mass lesions: None. - Additional findings: None. RIGHT ADNEXA: No significant ovarian cyst or mass. Normal color Doppler blood flow. LEFT ADNEXA: 4 cm left ovarian cyst. Normal color Doppler blood flow. URINARY BLADDER: No significant abnormality. FREE FLUID: None. ADDITIONAL FINDINGS: None. IMPRESSION: 1. No acute findings. 2. Left ovarian cyst measuring 4 cm that does not require dedicated follow-up in a patient of this ag e. Signer Name: Radu Bah MD Signed: 09/16/2021 1:31 PM Workstation Name: [id number]
[2021-09-16 14:20] LABS: Bilirubin,Urine NEG (Negative); Blood,Urine NEG (Negative); Color,Urine Yellow (Yellow); Mucus,Urine FEW /HPF; Protein,Urine <15 mg/dL mg/dL (Negative); Urobilinogen,Urine < 2.0 mg/dL (<2.0)
[2021-09-16 15:13] VITALS: BP 136/74
== END 2021-09-16 15:12 | disposition home or self-care (01) ==
LOC: ED 11:20
DX: N39.0 Urinary tract infection, site not specified (principal); N83.202 Unspecified ovarian cyst, left side; K02.9 Dental caries, unspecified; Z91.010 Allergy to peanuts; Z98.890 Other specified postprocedural states
CPT/HCPCS: 36415; 76856; 80053; 81001; 83690; 84703; 85025; 87086; 99284; J3490; Q0162